=== PATIENT | female | born 1940 | race African-American/Black ===

== ENCOUNTER 2023-04-11 11:24 | Inpatient (IN) | payer MEDICARE, MEDICAID ==
[~2023-04-11 11:24] MED LIST: Iopamidol-370 76% 500 ML MDV (1 ML CHARGE) ONE
[2023-04-11] MEDS ORDERED: Ondansetron PF 4 MG/2 ML Vial ONE ×2 (11:57→16:15)
[2023-04-11] MEDS ORDERED: Morphine 4 MG/ML VIAL ONE (11:57)
[2023-04-11 12:00] LABS: #Monocytes 0.5 thou/uL (0.11-0.59); #Neutrophils 8.6 thou/uL (1.40-6.50); %Basophils 0.2 % (0.0-1.0); %Eosinophils 0.1 % (0.0-10.0); %Lymphocytes 12.8 % (21.0-51.0); %Neutrophils 81.6 % (42.0-75.0); Hemoglobin 13.6 g/dL (12.0-16.0); Mean Corpuscular HGB CONC 34.9 g/dL (32.0-36.0); Mean Corpuscular Hemoglobin 29.7 pg (27.0-31.0); Mean Corpuscular Volume 85.2 fl (78.0-98.0); Mean Platelet Volume 9.9 fL (7.4-10.4); Platelet Count 313 10x3/uL (130-400); RBC Distribution Width 12.7 % (11.5-14.5); Red Blood Cell (RBC) Count 4.58 mill/uL (4.20-5.40); White Blood Cell (WBC) Count 10.5 10x3/uL (4.8-10.8)
[2023-04-11 12:25] LABS: ALT (SGPT) 10 U/L (8-55); AST (SGOT) 20 U/L (5-34); Albumin 4.6 g/dL (3.4-4.8); Alkaline Phosphatase 49 U/L (40-110); Anion Gap 15 mmol/L (10-20); BUN (Urea Nitrogen) 10 mg/dL (9.8-20.1); Bilirubin, Total 0.8 mg/dL (0.2-1.2); Calc. Creatinine Clearance 0 mL/min (70-130); Carbon Dioxide 29 mmol/L (23-31); Chloride 99 mmol/L (98-107); Estimated GFR 59; Globulin 3.2 g/dL (2.4-3.5); Glucose 200 mg/dL (83-110); Lipase 24 U/L (8-78); Potassium 3.3 mmol/L (3.5-5.1); Protein, Total 7.8 g/dL (5.8-8.1); Sodium 140 mmol/L (136-145)
[2023-04-11 12:47] LABS: Bacteria/HPF 1+ HPF (None Seen); Bilirubin Negative (Negative); Blood, Urine Trace (Negative); CAUTI Indications for Culture Dysuria,urgency,freq; Clarity Clear (Clear); Glucose, Urine (Dipstick) 200 mg/dL (Negative); Ketone, Urine 20 mg/dL (Negative); Leukocyte 75 Leu/uL (Negative); Nitrite Negative (Negative); Protein, Urine (Dipstick) 100 mg/dL (Neg-Trace); RBC/HPF 0-3 HPF (0-3); Squamous Epithelial 0-3 HPF (0-3); Urobilinogen Normal mg/dL (Less than 2); WBC/HPF 0-3 HPF (0-3); pH, Urine 6.5 (5.0-9.0)
[2023-04-11 12:48] LABS: Urine Culture Reflex No No
[2023-04-11] MEDS ORDERED: hydrALAZINE 20 MG/ML VIAL ONE (12:51)
[2023-04-11] MEDS ORDERED: Labetalol HCl 100 MG/20 ML VIAL ONE (15:50)
[2023-04-11] MEDS ORDERED: HYDROmorphone 0.5 MG/0.5 ML SYRINGE ONE (16:15)
[2023-04-11] MEDS ORDERED: niCARdipine 25 MG/10 ML SDV ONE (16:41)
[2023-04-11] MEDS ORDERED: Morphine 4 MG/ML VIAL SLOW IVP PRN (17:29)
[2023-04-11] MEDS ORDERED: Pantoprazole 40 MG VIAL IVP SCH (17:30)
[2023-04-11] MEDS ORDERED: Glucagon 1 MG/ML KIT IM PRN (17:37)
[2023-04-11] MEDS ORDERED: Dextrose 50% Abboject 50 ML SYRINGE SLOW IVP PRN (17:37)
[2023-04-11] MEDS ORDERED: Dextrose 5% in Water 1,000 ML IV PRN (17:37)
[2023-04-11] MEDS: niCARdipine 25 MG in Sodium Chloride 0.9% 250 ML 250 ML IVPB SCH ×2 (20:35→23:00)
[2023-04-11] MEDS: Pantoprazole 40 MG VIAL IVP SCH (21:45)
[2023-04-11] MEDS: HumaLOG 300 UNITS/3 ML VIAL SC PRN (21:56)
[2023-04-12] MEDS: niCARdipine 50 MG, Admixture Fee 1 EACH in Sodium Chloride 0.9% 250 ML 230 ML IVPB SCH ×3 (00:37→13:35)
[2023-04-12] MEDS: Metoclopramide HCl 10 MG/2 ML VIAL IVP PRN ×2 (01:31→08:48)
[2023-04-12] MEDS: Ondansetron PF 4 MG/2 ML Vial IVP PRN ×2 (01:31→08:48)
[2023-04-12] MEDS ORDERED: Electrolyte Replacement Protocol 1 EACH FS SCH (02:15)
[2023-04-12] MEDS: HumaLOG 300 UNITS/3 ML VIAL SC PRN ×4 (04:16→21:56)
[2023-04-12 05:16] LABS: #Monocytes 0.7 thou/uL (0.11-0.59); #Neutrophils 13.6 thou/uL (1.40-6.50); %Basophils 0.1 % (0.0-1.0); %Lymphocytes 5.8 % (21.0-51.0); %Monocytes 4.8 % (0.0-10.0); %Neutrophils 88.9 % (42.0-75.0); Hematocrit 37.6 % (36.0-47.0); Hemoglobin 12.6 g/dL (12.0-16.0); Mean Corpuscular HGB CONC 33.5 g/dL (32.0-36.0); Mean Corpuscular Hemoglobin 29.6 pg (27.0-31.0); Mean Platelet Volume 9.9 fL (7.4-10.4); Platelet Count 304 10x3/uL (130-400); RBC Distribution Width 13.2 % (11.5-14.5); Red Blood Cell (RBC) Count 4.26 mill/uL (4.20-5.40); White Blood Cell (WBC) Count 15.3 10x3/uL (4.8-10.8)
[2023-04-12 05:38] LABS: Anion Gap 18 mmol/L (10-20); BUN (Urea Nitrogen) 14 mg/dL (9.8-20.1); Calc. Creatinine Clearance 38 mL/min (70-130); Carbon Dioxide 21 mmol/L (23-31); Chloride 104 mmol/L (98-107); Estimated GFR 48; Glucose 257 mg/dL (83-110); Potassium 2.7 mmol/L (3.5-5.1); Sodium 140 mmol/L (136-145)
[2023-04-12 05:45] LABS: Mean Corpuscular Volume 88.3 fl (78.0-98.0)
[2023-04-12] MEDS: Potassium Chloride 20 MEQ in Premix 1 BAG IVPB SCH ×4 (05:55→13:01)
[2023-04-12] MEDS: Losartan 25 MG TAB PO SCH (08:34)
[2023-04-12] MEDS: Pantoprazole 40 MG VIAL IVP SCH ×2 (08:35→20:37)
[2023-04-12 08:36] LABS: Magnesium 1.2 mg/dL (1.6-2.6)
[2023-04-12] MEDS ORDERED: FLU VACC QS2023(65UP)/MF59C/PF 60 MCG/0.5 ML SYRINGE IM ONE (09:00)
[2023-04-12] MEDS ORDERED: Magnesium Sulfate In Water 4 GM in Premix 1 BAG IVPB SCH ×2 (09:30→10:45)
[2023-04-12] MEDS ORDERED: Electrolyte Replacement Protocol FS PRN (10:45)
[2023-04-12] MEDS: Ondansetron ODT 8 MG TAB SL SCH ×3 (13:37→20:36)
[2023-04-12 17:49] LABS: Potassium 3.7 mmol/L (3.5-5.1)
[2023-04-13] MEDS: niCARdipine 50 MG, Admixture Fee 1 EACH in Sodium Chloride 0.9% 250 ML 230 ML IVPB SCH ×2 (00:12→14:49)
[2023-04-13] MEDS: Losartan 25 MG TAB PO SCH (08:07)
[2023-04-13] MEDS: Pantoprazole 40 MG VIAL IVP SCH ×2 (08:07→20:10)
[2023-04-13] MEDS: Ondansetron ODT 8 MG TAB SL SCH ×4 (08:07→20:10)
[2023-04-13 08:21] LABS: Phosphorus 2.8 mg/dL (2.3-4.7)
[2023-04-13 08:28] LABS: Anion Gap 17 mmol/L (10-20); BUN (Urea Nitrogen) 19 mg/dL (9.8-20.1); Calc. Creatinine Clearance 38 mL/min (70-130); Carbon Dioxide 23 mmol/L (23-31); Chloride 108 mmol/L (98-107); Estimated GFR 46; Glucose 196 mg/dL (83-110); Magnesium 2.7 mg/dL (1.6-2.6); Potassium 3.4 mmol/L (3.5-5.1); Sodium 145 mmol/L (136-145)
[2023-04-13] MEDS: Potassium Chloride 20 MEQ in Premix 1 BAG IVPB SCH ×2 (09:35→12:31)
[2023-04-13] MEDS: HumaLOG 300 UNITS/3 ML VIAL SC PRN ×2 (11:59→17:15)
[2023-04-13] MEDS: Polyethylene Glycol 3350 17 GM Packet PO SCH (12:35)
[2023-04-13 18:46] LABS: Potassium 3.6 mmol/L (3.5-5.1)
[2023-04-14] MEDS: Labetalol HCl 100 MG/20 ML VIAL SLOW IVP PRN ×5 (00:09→19:45)
[2023-04-14] MEDS: HumaLOG 300 UNITS/3 ML VIAL SC PRN ×3 (06:30→19:47)
[2023-04-14 07:47] LABS: #Monocytes 1.1 thou/uL (0.11-0.59); #Neutrophils 10.6 thou/uL (1.40-6.50); %Basophils 0.2 % (0.0-1.0); %Eosinophils 0.2 % (0.0-10.0); %Lymphocytes 14.2 % (21.0-51.0); %Monocytes 7.6 % (0.0-10.0); %Neutrophils 77.3 % (42.0-75.0); Hematocrit 34.5 % (36.0-47.0); Hemoglobin 11.6 g/dL (12.0-16.0); Mean Corpuscular HGB CONC 33.6 g/dL (32.0-36.0); Mean Corpuscular Hemoglobin 29.8 pg (27.0-31.0); Mean Corpuscular Volume 88.7 fl (78.0-98.0); Mean Platelet Volume 9.8 fL (7.4-10.4); Platelet Count 266 10x3/uL (130-400); RBC Distribution Width 13.3 % (11.5-14.5); Red Blood Cell (RBC) Count 3.89 mill/uL (4.20-5.40); White Blood Cell (WBC) Count 13.8 10x3/uL (4.8-10.8)
[2023-04-14] MEDS ORDERED: Amlodipine 5 MG TAB PO SCH ×2 (09:00)
[2023-04-14] MEDS: Ondansetron ODT 8 MG TAB SL SCH ×4 (09:07→19:45)
[2023-04-14] MEDS: Pantoprazole 40 MG VIAL IVP SCH ×2 (09:07→19:46)
[2023-04-14] MEDS: Losartan 25 MG TAB PO SCH (09:07)
[2023-04-14 09:17] LABS: Anion Gap 15 mmol/L (10-20); BUN (Urea Nitrogen) 16 mg/dL (9.8-20.1); Calc. Creatinine Clearance 52 mL/min (70-130); Calcium 8.5 mg/dL (7.8-10.44); Carbon Dioxide 23 mmol/L (23-31); Chloride 106 mmol/L (98-107); Estimated GFR 65; Glucose 136 mg/dL (83-110); Potassium 3.5 mmol/L (3.5-5.1); Sodium 140 mmol/L (136-145)
[2023-04-14] MEDS ORDERED: Potassium Chloride 20 MEQ TAB PO SCH (11:00)
[2023-04-14] MEDS: Polyethylene Glycol 3350 17 GM Packet PO SCH (15:09)
[2023-04-14] MEDS: Acetaminophen 325 MG TAB PO PRN (17:59)
[2023-04-14] MEDS: metFORMIN 500 MG TAB PO SCH (17:59)
[2023-04-14] MEDS: hydrALAZINE 20 MG/ML VIAL SLOW IVP PRN (23:20)
[2023-04-15] MEDS: hydrALAZINE 20 MG/ML VIAL SLOW IVP PRN ×2 (04:14→10:43)
[2023-04-15] MEDS: HumaLOG 300 UNITS/3 ML VIAL SC PRN ×3 (04:43→19:35)
[2023-04-15 06:17] LABS: #Basophils 0.1 thou/uL (0.0-0.2); #Eosinphils 0.1 thou/uL (0.0-0.7); #Monocytes 1.1 thou/uL (0.11-0.59); %Basophils 0.4 % (0.0-1.0); %Eosinophils 0.4 % (0.0-10.0); %Lymphocytes 12.3 % (21.0-51.0); %Monocytes 7.8 % (0.0-10.0); %Neutrophils 78.5 % (42.0-75.0); Hematocrit 38.6 % (36.0-47.0); Hemoglobin 13.2 g/dL (12.0-16.0); Mean Corpuscular HGB CONC 34.2 g/dL (32.0-36.0); Mean Corpuscular Volume 87.7 fl (78.0-98.0); Mean Platelet Volume 10.4 fL (7.4-10.4); Platelet Count 320 10x3/uL (130-400); RBC Distribution Width 13.1 % (11.5-14.5)
[2023-04-15 06:40] LABS: Anion Gap 14 mmol/L (10-20); BUN (Urea Nitrogen) 12 mg/dL (9.8-20.1); Calc. Creatinine Clearance 54 mL/min (70-130); Calcium 8.7 mg/dL (7.8-10.44); Carbon Dioxide 25 mmol/L (23-31); Chloride 100 mmol/L (98-107); Estimated GFR 67; Glucose 149 mg/dL (83-110); Potassium 3.8 mmol/L (3.5-5.1); Sodium 135 mmol/L (136-145)
[2023-04-15] MEDS: metFORMIN 500 MG TAB PO SCH ×2 (08:39→17:23)
[2023-04-15] MEDS: Losartan 25 MG TAB PO SCH (08:40)
[2023-04-15] MEDS: Ondansetron ODT 8 MG TAB SL SCH ×4 (08:40→20:52)
[2023-04-15] MEDS: Amlodipine 10 MG TAB PO SCH (08:46)
[2023-04-15] MEDS: Acetaminophen 325 MG TAB PO PRN ×2 (09:01→17:29)
[2023-04-15] MEDS: Polyethylene Glycol 3350 17 GM Packet PO SCH (12:13)
[2023-04-15] MEDS: Metoclopramide HCl 10 MG/2 ML VIAL IVP PRN (19:21)
[2023-04-16] MEDS: Metoclopramide HCl 10 MG/2 ML VIAL IVP PRN (04:49)
[2023-04-16] MEDS: Amlodipine 10 MG TAB PO SCH (08:35)
[2023-04-16] MEDS: Losartan 25 MG TAB PO SCH (08:35)
[2023-04-16] MEDS: metFORMIN 500 MG TAB PO SCH ×2 (08:36→17:20)
[2023-04-16] MEDS: Ondansetron ODT 8 MG TAB SL SCH ×4 (08:36→19:51)
[2023-04-16] MEDS: Acetaminophen 325 MG TAB PO PRN ×2 (08:50→19:49)
[2023-04-16] MEDS: Polyethylene Glycol 3350 17 GM Packet PO SCH (12:18)
[2023-04-16] MEDS: HumaLOG 300 UNITS/3 ML VIAL SC PRN ×2 (12:25→16:57)
[2023-04-16] MEDS: Labetalol HCl 100 MG/20 ML VIAL SLOW IVP PRN (19:49)
[2023-04-17] MEDS: hydrALAZINE 20 MG/ML VIAL SLOW IVP PRN (04:35)
[2023-04-17] MEDS: Labetalol HCl 100 MG/20 ML VIAL SLOW IVP PRN (06:11)
[2023-04-17] MEDS: metFORMIN 500 MG TAB PO SCH ×2 (08:21→18:16)
[2023-04-17] MEDS: Ondansetron ODT 8 MG TAB SL SCH ×4 (09:01→20:14)
[2023-04-17] MEDS: Amlodipine 10 MG TAB PO SCH (09:01)
[2023-04-17] MEDS: Losartan 25 MG TAB PO SCH (09:01)
[2023-04-17] MEDS ORDERED: PROPOFOL 20 ML ONE ×2 (09:47→10:47)
[2023-04-17] MEDS ORDERED: Lidocaine 1% PF 5 ML VIAL ONE ×2 (09:47→10:55)
[2023-04-17] MEDS ORDERED: PROPOFOL 200 MG/20 ML VIAL ONE (10:55)
[2023-04-17] MEDS: Polyethylene Glycol 3350 17 GM Packet PO SCH (12:10)
[2023-04-17] MEDS: Acetaminophen 325 MG TAB PO PRN (12:10)
[2023-04-17 14:38] VITALS: BMI 23.6
[2023-04-18] MEDS: metFORMIN 500 MG TAB PO SCH ×2 (08:47→18:07)
[2023-04-18] MEDS: Amlodipine 10 MG TAB PO SCH (08:47)
[2023-04-18] MEDS: Ondansetron ODT 8 MG TAB SL SCH ×4 (08:47→20:20)
[2023-04-18] MEDS: Losartan 25 MG TAB PO SCH (08:47)
[2023-04-18] MEDS ORDERED: Bisacodyl 10 MG SUPP PR SCH (10:30)
[2023-04-18] MEDS: Polyethylene Glycol 3350 17 GM Packet PO SCH (13:53)
[2023-04-18] MEDS ORDERED: Iopamidol-370 76% 500 ML MDV (1 ML CHARGE) ONE (14:27)
[2023-04-18] MEDS: HumaLOG 300 UNITS/3 ML VIAL SC PRN (18:08)
[2023-04-19] MEDS: Acetaminophen 325 MG TAB PO PRN ×3 (00:18→20:09)
[2023-04-19] MEDS: Ondansetron ODT 8 MG TAB SL SCH ×4 (08:42→20:09)
[2023-04-19] MEDS: Amlodipine 10 MG TAB PO SCH (08:42)
[2023-04-19] MEDS: Losartan 25 MG TAB PO SCH (08:42)
[2023-04-19] MEDS: metFORMIN 500 MG TAB PO SCH ×2 (08:42→17:08)
[2023-04-19] MEDS: Polyethylene Glycol 3350 17 GM Packet PO SCH (13:17)
[2023-04-19] MEDS: Mirtazapine 15 MG TAB PO SCH (20:10)
[2023-04-20] MEDS: metFORMIN 500 MG TAB PO SCH ×2 (09:12→17:47)
[2023-04-20] MEDS: Losartan 25 MG TAB PO SCH (09:12)
[2023-04-20] MEDS: Ondansetron ODT 8 MG TAB SL SCH ×4 (09:12→19:22)
[2023-04-20] MEDS: Amlodipine 10 MG TAB PO SCH (09:12)
[2023-04-20] MEDS: Polyethylene Glycol 3350 17 GM Packet PO SCH (12:36)
[2023-04-20] MEDS: HumaLOG 300 UNITS/3 ML VIAL SC PRN (12:36)
[2023-04-20] MEDS: Acetaminophen 325 MG TAB PO PRN (19:22)
[2023-04-20] MEDS: Mirtazapine 15 MG TAB PO SCH (19:22)
[2023-04-21] MEDS: metFORMIN 500 MG TAB PO SCH ×2 (08:58→16:41)
[2023-04-21] MEDS: Losartan 25 MG TAB PO SCH (08:59)
[2023-04-21] MEDS: Ondansetron ODT 8 MG TAB SL SCH ×4 (08:59→20:41)
[2023-04-21] MEDS: Amlodipine 10 MG TAB PO SCH (08:59)
[2023-04-21] MEDS: Polyethylene Glycol 3350 17 GM Packet PO SCH (13:08)
[2023-04-21] MEDS: Mirtazapine 15 MG TAB PO SCH (20:41)
[2023-04-22] MEDS ORDERED: hydrALAZINE 25 MG TAB PO SCH (09:00)
[2023-04-22] MEDS: Amlodipine 10 MG TAB PO SCH (09:53)
[2023-04-22] MEDS: Losartan 25 MG TAB PO SCH (09:53)
[2023-04-22] MEDS: Ondansetron ODT 8 MG TAB SL SCH ×3 (09:53→16:30)
[2023-04-22] MEDS: metFORMIN 500 MG TAB PO SCH ×2 (09:54→16:30)
[2023-04-22] MEDS: Acetaminophen 325 MG TAB PO PRN (09:56)
[2023-04-22] MEDS: HumaLOG 300 UNITS/3 ML VIAL SC PRN ×2 (11:47→16:30)
[2023-04-22] MEDS: Polyethylene Glycol 3350 17 GM Packet PO SCH (12:52)
[2023-04-22] MEDS ORDERED: AMOXicillin 250 MG CAP PO SCH ×2 (13:45→21:00)
[2023-04-22] MEDS ORDERED: Clarithromycin 500 MG TAB PO SCH ×2 (13:45→21:00)
[2023-04-22 18:24] VITALS: BP 124/63; TEMP 98.4
== END 2023-04-22 20:05 | DRG 392 ==
LOC: ERS 11:24 → CCU 16:39 → T4-A 04-14 11:02
PROVIDERS: ADMIT Internal Medicine; ATTEND Internal Medicine
PROC: 0DB78ZX Excision of Stomach, Pylorus, Via Natural or Artificial Opening Endoscopic, Diagnostic (ICD-10-PCS; principal; 2023-04-17)
DX: K29.70 Gastritis, unspecified, without bleeding (principal); I16.0 Hypertensive urgency; E78.5 Hyperlipidemia, unspecified; E87.6 Hypokalemia; E83.42 Hypomagnesemia; K59.09 Other constipation; E11.65 Type 2 diabetes mellitus with hyperglycemia; I10 Essential (primary) hypertension; F32.A Depression, unspecified; Z98.41 Cataract extraction status, right eye; Z79.899 Other long term (current) drug therapy; Z98.51 Tubal ligation status; Z98.42 Cataract extraction status, left eye
CPT/HCPCS: 36415; 36416; 71045; 74018; 74177; 80048; 80053; 81001; 82533; 83690; 83735; 84100; 85025; 88305; 88342; 93005; 93306; 96361; 96365; 96366; 96375; 96376; C9113; J0360; J1170; J1815; J2270; J2405; J2704; J2765; J3475; J3480; J7050; Q0162; Q9967

== ENCOUNTER 2023-05-20 15:50 | Inpatient (IN) | payer MEDICARE, MEDICAID ==
[2023-05-20 16:23] LABS: #Eosinphils 0.1 thou/uL (0.0-0.7); #Monocytes 0.5 thou/uL (0.11-0.59); #Neutrophils 4.7 thou/uL (1.40-6.50); %Basophils 0.4 % (0.0-1.0); %Eosinophils 0.8 % (0.0-10.0); %Lymphocytes 29.5 % (21.0-51.0); %Monocytes 6.6 % (0.0-10.0); %Neutrophils 62.4 % (42.0-75.0); Hemoglobin 11.2 g/dL (12.0-16.0); Mean Corpuscular HGB CONC 32.9 g/dL (32.0-36.0); Mean Corpuscular Hemoglobin 29.6 pg (27.0-31.0); Mean Corpuscular Volume 89.9 fl (78.0-98.0); Mean Platelet Volume 9.9 fL (7.4-10.4); Platelet Count 289 10x3/uL (130-400); RBC Distribution Width 13.4 % (11.5-14.5); Red Blood Cell (RBC) Count 3.78 mill/uL (4.20-5.40); White Blood Cell (WBC) Count 7.6 10x3/uL (4.8-10.8)
[2023-05-20] MEDS ORDERED: hydrALAZINE 20 MG/ML VIAL ONE (16:31)
[2023-05-20 16:48] LABS: ALT (SGPT) Less than 7 U/L (8-55); AST (SGOT) 13 U/L (5-34); Albumin 3.8 g/dL (3.4-4.8); Alkaline Phosphatase 43 U/L (40-110); Anion Gap 17 mmol/L (10-20); BUN (Urea Nitrogen) 13 mg/dL (9.8-20.1); Bilirubin, Total 0.4 mg/dL (0.2-1.2); Calc. Creatinine Clearance 0 mL/min (70-130); Carbon Dioxide 22 mmol/L (23-31); Chloride 106 mmol/L (98-107); Estimated GFR 72; Globulin 2.6 g/dL (2.4-3.5); Glucose 148 mg/dL (83-110); Potassium 3.8 mmol/L (3.5-5.1); Protein, Total 6.4 g/dL (5.8-8.1); Sodium 141 mmol/L (136-145)
[2023-05-20 16:49] LABS: Troponin I Less than 0.010 ng/mL (< 0.028)
[2023-05-20] MEDS ORDERED: Ondansetron PF 4 MG/2 ML Vial IVP PRN (19:02)
[2023-05-20] MEDS ORDERED: Dextrose 50% Abboject 50 ML SYRINGE SLOW IVP PRN (19:12)
[2023-05-20] MEDS ORDERED: Dextrose 5% in Water 1,000 ML IV PRN (19:12)
[2023-05-20] MEDS ORDERED: HumaLOG 300 UNITS/3 ML VIAL SC PRN ×2 (19:12)
[2023-05-20] MEDS ORDERED: Glucagon 1 MG/ML KIT IM PRN (19:12)
[2023-05-20] MEDS ORDERED: niCARdipine 25 MG/10 ML SDV ONE (19:12)
[2023-05-20] MEDS ORDERED: niCARdipine 25 MG in Sodium Chloride 0.9% 250 ML 250 ML IVPB SCH (19:15)
[2023-05-20 20:06] LABS: Troponin I Less than 0.010 ng/mL (< 0.028)
[2023-05-20] MEDS: Mirtazapine 15 MG TAB PO SCH (20:51)
[2023-05-20] MEDS ORDERED: hydrALAZINE 20 MG/ML VIAL SLOW IVP PRN (20:56)
[2023-05-20 21:03] VITALS: BMI 22.7
[2023-05-21] MEDS ORDERED: Amlodipine 10 MG TAB PO SCH ×2 (03:15→09:00)
[2023-05-21] MEDS ORDERED: hydrALAZINE 25 MG TAB PO SCH ×2 (03:15→09:00)
[2023-05-21] MEDS ORDERED: Losartan 25 MG TAB PO SCH ×3 (03:15→10:00)
[2023-05-21 05:24] LABS: #Eosinphils 0.1 thou/uL (0.0-0.7); #Monocytes 0.8 thou/uL (0.11-0.59); #Neutrophils 7.7 thou/uL (1.40-6.50); %Basophils 0.4 % (0.0-1.0); %Eosinophils 0.8 % (0.0-10.0); %Lymphocytes 18.8 % (21.0-51.0); %Monocytes 7.5 % (0.0-10.0); %Neutrophils 72.1 % (42.0-75.0); Hemoglobin 13.1 g/dL (12.0-16.0); Mean Corpuscular HGB CONC 32.8 g/dL (32.0-36.0); Mean Corpuscular Hemoglobin 29.8 pg (27.0-31.0); Mean Corpuscular Volume 91.1 fl (78.0-98.0); Mean Platelet Volume 9.9 fL (7.4-10.4); Platelet Count 282 10x3/uL (130-400); RBC Distribution Width 13.8 % (11.5-14.5); Red Blood Cell (RBC) Count 4.39 mill/uL (4.20-5.40); White Blood Cell (WBC) Count 10.6 10x3/uL (4.8-10.8)
[2023-05-21 05:44] LABS: Anion Gap 13 mmol/L (10-20); BUN (Urea Nitrogen) 8 mg/dL (9.8-20.1); Calc. Creatinine Clearance 59 mL/min (70-130); Calcium 9.2 mg/dL (7.8-10.44); Carbon Dioxide 20 mmol/L (23-31); Chloride 108 mmol/L (98-107); Estimated GFR 80; Glucose 141 mg/dL (83-110); Potassium 3.9 mmol/L (3.5-5.1); Sodium 137 mmol/L (136-145)
[2023-05-21] MEDS: Enoxaparin 40 MG (0.4 mL) SYRINGE SC SCH (09:24)
[2023-05-21] MEDS: COMBIGAN 0.2%-0.5% EA EYE SCH ×2 (09:25→19:54)
[2023-05-21] MEDS: BRINZOLAMIDE 1% EA EYE SCH ×3 (09:25→19:54)
[2023-05-21] MEDS: EYE EA EYE SCH ×3 (09:25→19:54)
[2023-05-21] MEDS: Labetalol HCl 100 MG/20 ML VIAL SLOW IVP PRN (18:07)
[2023-05-21] MEDS: hydrALAZINE 25 MG TAB PO SCH (19:53)
[2023-05-21] MEDS: Mirtazapine 15 MG TAB PO SCH (19:54)
[2023-05-22 05:15] LABS: #Eosinphils 0.2 thou/uL (0.0-0.7); #Monocytes 0.6 thou/uL (0.11-0.59); #Neutrophils 4.7 thou/uL (1.40-6.50); %Basophils 0.4 % (0.0-1.0); %Eosinophils 2.6 % (0.0-10.0); %Lymphocytes 25.3 % (21.0-51.0); %Monocytes 8.5 % (0.0-10.0); %Neutrophils 62.8 % (42.0-75.0); Hematocrit 35.5 % (36.0-47.0); Hemoglobin 11.9 g/dL (12.0-16.0); Mean Corpuscular HGB CONC 33.5 g/dL (32.0-36.0); Mean Corpuscular Hemoglobin 29.8 pg (27.0-31.0); Platelet Count 296 10x3/uL (130-400); RBC Distribution Width 13.8 % (11.5-14.5); Red Blood Cell (RBC) Count 3.99 mill/uL (4.20-5.40); White Blood Cell (WBC) Count 7.4 10x3/uL (4.8-10.8)
[2023-05-22 05:40] LABS: Anion Gap 12 mmol/L (10-20); BUN (Urea Nitrogen) 15 mg/dL (9.8-20.1); Calc. Creatinine Clearance 45 mL/min (70-130); Calcium 8.7 mg/dL (7.8-10.44); Carbon Dioxide 24 mmol/L (23-31); Chloride 106 mmol/L (98-107); Estimated GFR 58; Glucose 126 mg/dL (83-110); Potassium 3.9 mmol/L (3.5-5.1); Sodium 138 mmol/L (136-145)
[2023-05-22] MEDS: hydrALAZINE 25 MG TAB PO SCH ×3 (08:32→20:06)
[2023-05-22] MEDS: Losartan 25 MG TAB PO SCH (08:32)
[2023-05-22] MEDS: Enoxaparin 40 MG (0.4 mL) SYRINGE SC SCH (08:33)
[2023-05-22] MEDS ORDERED: Losartan 25 MG TAB PO SCH (09:00)
[2023-05-22] MEDS ORDERED: Amlodipine 10 MG TAB PO SCH (09:00)
[2023-05-22] MEDS: BRINZOLAMIDE 1% EA EYE SCH ×3 (09:54→20:12)
[2023-05-22] MEDS: EYE EA EYE SCH ×3 (09:54→20:12)
[2023-05-22] MEDS: COMBIGAN 0.2%-0.5% EA EYE SCH ×2 (09:55→20:11)
[2023-05-22] MEDS ORDERED: metFORMIN 500 MG TAB PO SCH (11:00)
[2023-05-22] MEDS: Docusate 100 MG CAP PO PRN (11:11)
[2023-05-22] MEDS: Acetaminophen 325 MG TAB PO PRN ×2 (14:29→20:07)
[2023-05-22] MEDS: Mirtazapine 15 MG TAB PO SCH (20:07)
[2023-05-23 06:11] LABS: #Eosinphils 0.1 thou/uL (0.0-0.7); #Monocytes 0.6 thou/uL (0.11-0.59); #Neutrophils 4.5 thou/uL (1.40-6.50); %Basophils 0.1 % (0.0-1.0); %Eosinophils 1.5 % (0.0-10.0); %Monocytes 8.1 % (0.0-10.0); %Neutrophils 67.2 % (42.0-75.0); Hematocrit 32.6 % (36.0-47.0); Hemoglobin 10.9 g/dL (12.0-16.0); Mean Corpuscular HGB CONC 33.4 g/dL (32.0-36.0); Mean Corpuscular Hemoglobin 29.8 pg (27.0-31.0); Mean Corpuscular Volume 89.1 fl (78.0-98.0); Mean Platelet Volume 10.2 fL (7.4-10.4); Platelet Count 288 10x3/uL (130-400); RBC Distribution Width 13.6 % (11.5-14.5); Red Blood Cell (RBC) Count 3.66 mill/uL (4.20-5.40); White Blood Cell (WBC) Count 6.8 10x3/uL (4.8-10.8)
[2023-05-23 06:41] LABS: Anion Gap 13 mmol/L (10-20); BUN (Urea Nitrogen) 19 mg/dL (9.8-20.1); Calc. Creatinine Clearance 41 mL/min (70-130); Calcium 8.7 mg/dL (7.8-10.44); Carbon Dioxide 23 mmol/L (23-31); Chloride 105 mmol/L (98-107); Estimated GFR 52; Glucose 135 mg/dL (83-110); Potassium 3.8 mmol/L (3.5-5.1); Sodium 137 mmol/L (136-145)
[2023-05-23] MEDS: metFORMIN 500 MG TAB PO SCH (08:19)
[2023-05-23] MEDS: Enoxaparin 40 MG (0.4 mL) SYRINGE SC SCH (08:19)
[2023-05-23] MEDS: hydrALAZINE 25 MG TAB PO SCH ×3 (08:19→20:09)
[2023-05-23] MEDS: Losartan 25 MG TAB PO SCH (08:19)
[2023-05-23] MEDS ORDERED: metFORMIN 500 MG TAB PO SCH (09:00)
[2023-05-23] MEDS: BRINZOLAMIDE 1% EA EYE SCH ×3 (09:29→20:07)
[2023-05-23] MEDS: EYE EA EYE SCH ×3 (09:29→20:07)
[2023-05-23] MEDS: COMBIGAN 0.2%-0.5% EA EYE SCH ×2 (09:29→20:11)
[2023-05-23] MEDS: Acetaminophen 325 MG TAB PO PRN ×2 (14:23→20:10)
[2023-05-23] MEDS ORDERED: Hydrochlorothiazide 25 MG TAB PO SCH (16:45)
[2023-05-23] MEDS: Docusate 100 MG CAP PO PRN (20:09)
[2023-05-23] MEDS: Mirtazapine 15 MG TAB PO SCH (20:10)
[2023-05-24] MEDS: metFORMIN 500 MG TAB PO SCH (08:32)
[2023-05-24] MEDS: Docusate 100 MG CAP PO PRN (08:33)
[2023-05-24] MEDS: hydrALAZINE 25 MG TAB PO SCH (08:33)
[2023-05-24] MEDS: COMBIGAN 0.2%-0.5% EA EYE SCH (08:34)
[2023-05-24] MEDS: BRINZOLAMIDE 1% EA EYE SCH (08:34)
[2023-05-24] MEDS: Enoxaparin 40 MG (0.4 mL) SYRINGE SC SCH (08:34)
[2023-05-24] MEDS: EYE EA EYE SCH (08:34)
[2023-05-24] MEDS: Losartan 25 MG TAB PO SCH (08:34)
[2023-05-24] MEDS: Labetalol HCl 100 MG/20 ML VIAL SLOW IVP PRN (08:35)
[2023-05-24 08:40] VITALS: BP 197/83; TEMP 98.4
[2023-05-24] MEDS ORDERED: Hydrochlorothiazide 25 MG TAB PO SCH (09:00)
== END 2023-05-24 14:00 | disposition home or self-care (01) | DRG 305 ==
LOC: ERS 15:50 → CCU 19:04 → T4-A 05-21 17:53
PROVIDERS: ADMIT Internal Medicine; ATTEND Internal Medicine
DX: I16.0 Hypertensive urgency (principal); M25.461 Effusion, right knee; K29.50 Unspecified chronic gastritis without bleeding; E11.22 Type 2 diabetes mellitus with diabetic chronic kidney disease; K21.9 Gastro-esophageal reflux disease without esophagitis; I12.9 Hypertensive chronic kidney disease with stage 1 through stage 4 chronic kidney disease, or unspecified chronic kidney disease; Z88.0 Allergy status to penicillin; Z79.899 Other long term (current) drug therapy; Z98.890 Other specified postprocedural states; Z82.49 Family history of ischemic heart disease and other diseases of the circulatory system; Z88.1 Allergy status to other antibiotic agents
CPT/HCPCS: 36415; 36416; 70450; 80048; 80053; 84484; 85025; 93005; 96374; 96375; J0360; J1650; J2405; J7050